=== PATIENT | male | born 1985 | race Caucasian/White ===

== ENCOUNTER 2017-08-04 11:02 | Emergency (ER) | payer OTHER, MEDICARE, MEDICAID ==
[~2017-08-04] VITALS: Ht 185.4 cm; Wt 85.9 kg
[2017-08-04] MEDS ORDERED: KETOROLAC TROMETHAMINE 10 MG TABLET PO ONE (12:00)
[2017-09-10 19:59] VITALS: BP 165/116
== END 2017-08-04 13:08 | disposition left against medical advice (07) ==
LOC: EDBD 11:06 → EMS 11:06
DX: K08.89 Other specified disorders of teeth and supporting structures (principal); F12.90 Cannabis use, unspecified, uncomplicated; Z76.0 Encounter for issue of repeat prescription
CPT/HCPCS: 99283

== ENCOUNTER 2017-09-15 05:44 | Emergency (ER) | payer MEDICARE, MEDICAID ==
[~2017-09-15] VITALS: Ht 185.4 cm; Wt 86.4 kg
[2017-09-15] MEDS ORDERED: GABA-533 PO (06:09)
[2017-09-15] MEDS ORDERED: HYDROCODONE/ACETAMINOPHEN 5-325 MG TABLET PO ONE ×2 (06:45→07:30)
[2017-09-15 07:04] LABS: BASOPHILS % (AUTO) 0.6 % (0.0-2.0); EOSINOPHILS % (AUTO) 1.9 % (1.0-6.0); HEMATOCRIT 51.3 % (41-53); HEMOGLOBIN 18.1 g/dL (13.5-17.5); LYMPHOCYTES # (AUTO) 2.5 K/uL (1.0-4.8); LYMPHOCYTES % (AUTO) 28.8 % (22.0-44.0); MEAN CORPUSCULAR HEMOGLOBIN 31.7 pg (26.0-34.0); MEAN CORPUSCULAR HGB CONC 35.3 G/dL (31.0-37.0); MEAN CORPUSCULAR VOLUME 90 fL (80-100); MONOCYTES # (AUTO) 0.7 K/uL (0.1-1.0); MONOCYTES % (AUTO) 8.2 % (2.0-9.0); NEUTROPHILS # (AUTO) 5.3 K/uL (1.8-7.7); NEUTROPHILS % (AUTO) 60.5 % (40.0-70.0); PLATELET COUNT (AUTO) 246 K/uL (150-450); RED CELL DISTRIBUTION WIDTH 13.6 % (11.5-14.5)
[2017-09-15 07:13] LABS: ANION GAP 6 mmol/L (8-16); CALCIUM, TOTAL 8.6 mg/dL (8.8-10.5); CARBON DIOXIDE 26 mmol/L (22-29); CHLORIDE 104 mmol/L (98-107); CREATININE 1.12 mg/dL (0.60-1.30); GLOMERULAR FILTR. RATE CALC > 60 mL/min (>60); GLUCOSE,RANDOM 103 mg/dL (70-110); POTASSIUM 3.5 mmol/L (3.5-5.1); SODIUM SERUM 136 mmol/L (136-145); UREA NITROGEN, BLOOD 11 mg/dL (7-18)
[2017-09-15 07:19] LABS: ALANINE AMINOTRANSFERASE 39 U/L (12-78); ALBUMIN 3.8 g/dL (3.4-5.0); ALKALINE PHOSPHATASE 92 U/L (46-116); ASPARTATE AMINOTRANSFERASE 34 U/L (15-37); BILIRUBIN,TOTAL 0.6 mg/dL (0.1-1.0); TOTAL PROTEIN, SERUM 7.5 g/dL (6.4-8.2)
[2017-09-15 07:20] LABS: AMPHET/METH SCREEN,URINE NEGATIVE (NEGATIVE); BARBITURATE SCREEN, URINE NEGATIVE (NEGATIVE); BENZODIAZEPINES SCREEN,URINE NEGATIVE (NEGATIVE); CANNABINOID SCREEN,URINE POSITIVE (NEGATIVE); COCAINE SCREEN,URINE POSITIVE (NEGATIVE); METHADONE SCREEN, URINE NEGATIVE (NEGATIVE); OPIATE SCREEN,URINE POSITIVE (NEGATIVE)
[2017-09-15 07:21] LABS: PHENCYCLIDINE SCREEN,URINE NEGATIVE (NEGATIVE)
[2017-09-15] MEDS ORDERED: CloNIDine HCL 0.1 MG TABLET PO ONE ×2 (07:30→09:30)
[2017-09-15] MEDS ORDERED: MORPHINE SULFATE 4 MG/ML SYRINGE IM ONE (09:15)
[2017-09-15 11:00] VITALS: BP 141/100
== END 2017-09-15 11:42 | disposition left against medical advice (07) ==
LOC: EMS 05:45
DX: R51 Headache (principal); I10 Essential (primary) hypertension; F14.90 Cocaine use, unspecified, uncomplicated; F12.90 Cannabis use, unspecified, uncomplicated; F17.210 Nicotine dependence, cigarettes, uncomplicated
CPT/HCPCS: 36415; 70450; 80053; 80307; 85025; 96372; 99285; J2270

== ENCOUNTER 2018-08-22 16:59 | Emergency (ER) | payer MEDICAID, MEDICARE, OTHER ==
[~2018-08-22] VITALS: Ht 182.9 cm; Wt 78.6 kg
[~2018-08-22 16:59] MED LIST: GABA-533 PO
[2018-08-22] MEDS ORDERED: GABA-531 PO (17:07)
[2018-08-22] MEDS ORDERED: LISI-662 PO (17:07)
[2018-08-22] MEDS ORDERED: MORPHINE SULFATE 4 MG/ML SYRINGE IVP ONE ×2 (17:45→20:30)
[2018-08-22 17:51] LABS: BASOPHILS % (AUTO) 0.5 % (0.0-2.0); EOSINOPHILS % (AUTO) 1.1 % (1.0-6.0); HEMATOCRIT 46.2 % (41-53); HEMOGLOBIN 15.6 g/dL (13.5-17.5); LYMPHOCYTES # (AUTO) 1.8 K/uL (1.0-4.8); LYMPHOCYTES % (AUTO) 21.7 % (22.0-44.0); MEAN CORPUSCULAR HEMOGLOBIN 30.4 pg (26.0-34.0); MEAN CORPUSCULAR HGB CONC 33.8 G/dL (31.0-37.0); MEAN CORPUSCULAR VOLUME 90 fL (80-100); MONOCYTES # (AUTO) 0.6 K/uL (0.1-1.0); MONOCYTES % (AUTO) 6.9 % (2.0-9.0); NEUTROPHILS # (AUTO) 5.7 K/uL (1.8-7.7); NEUTROPHILS % (AUTO) 69.8 % (40.0-70.0); PLATELET COUNT (AUTO) 191 K/uL (150-450); RED BLOOD CELL COUNT(AUTO) 5.13 MIL/uL (4.50-5.90); RED CELL DISTRIBUTION WIDTH 16.1 % (11.5-14.5)
[2018-08-22 18:10] LABS: ANION GAP 6 mmol/L (8-16); CARBON DIOXIDE 29 mmol/L (22-29); CHLORIDE 106 mmol/L (98-107); GLUCOSE,RANDOM 102 mg/dL (70-110); POTASSIUM 3.8 mmol/L (3.5-5.1); SODIUM SERUM 141 mmol/L (136-145); UREA NITROGEN, BLOOD 17 mg/dL (7-18)
[2018-08-22 18:11] LABS: CALCIUM, TOTAL 9.3 mg/dL (8.8-10.5); CREATININE 1.31 mg/dL (0.60-1.30); GLOMERULAR FILTR. RATE CALC > 60 mL/min (>60)
[2018-08-22 18:16] LABS: ALANINE AMINOTRANSFERASE 35 U/L (12-78); ALBUMIN 3.4 g/dL (3.4-5.0); ALKALINE PHOSPHATASE 92 U/L (46-116); ASPARTATE AMINOTRANSFERASE 27 U/L (15-37); BILIRUBIN,TOTAL 0.7 mg/dL (0.1-1.0); LIPASE 331 U/L (73-393); TOTAL PROTEIN, SERUM 7.1 g/dL (6.4-8.2)
[2018-08-22] MEDS ORDERED: KETOROLAC TROMETHAMINE 30 MG/ML VIAL IVP ONE (18:45)
[2018-08-22] MEDS ORDERED: SODIUM CHLORIDE 0.9% 1,000 ML IV ONE (18:45)
[2018-08-22 19:19] LABS: APPEARANCE,URINE CLEAR (CLEAR); BILIRUBIN,URINE NEGATIVE (NEGATIVE); GLUCOSE, URINE (UA) NEGATIVE (NEGATIVE); KETONES,URINE NEGATIVE (NEGATIVE); LEUKOCYTE ESTERASE ,URINE TRACE (NEGATIVE); NITRATE,URINE NEGATIVE (NEGATIVE); OCCULT BLOOD,URINE NEGATIVE (NEGATIVE); PROTEIN,URINE NEGATIVE (NEGATIVE)
[2018-08-22 19:25] LABS: AMPHET/METH SCREEN,URINE NEGATIVE (NEGATIVE); BARBITURATE SCREEN, URINE NEGATIVE (NEGATIVE); BENZODIAZEPINES SCREEN,URINE POSITIVE (NEGATIVE); CANNABINOID SCREEN,URINE POSITIVE (NEGATIVE); COCAINE SCREEN,URINE NEGATIVE (NEGATIVE); METHADONE SCREEN, URINE NEGATIVE (NEGATIVE); OPIATE SCREEN,URINE POSITIVE (NEGATIVE); PHENCYCLIDINE SCREEN,URINE NEGATIVE (NEGATIVE)
[2018-08-22 19:34] LABS: BACTERIA,URINE None Seen /HPF (None Seen); RBC,URINE None Seen /HPF (0-2); SQUAMOUS EPITHELIAL CELL,UR Rare /LPF (None Seen)
[2018-08-22 21:06] VITALS: BP 151/89
== END 2018-08-22 21:09 | disposition home or self-care (01) ==
LOC: EMS 17:00
DX: S22.42XA Multiple fractures of ribs, left side, initial encounter for closed fracture (principal); I10 Essential (primary) hypertension; F17.210 Nicotine dependence, cigarettes, uncomplicated; F12.90 Cannabis use, unspecified, uncomplicated; Z79.899 Other long term (current) drug therapy; Z88.8 Allergy status to other drugs, medicaments and biological substances; X58.XXXA Exposure to other specified factors, initial encounter; Y93.72 Activity, wrestling; Y92.89 Other specified places as the place of occurrence of the external cause; Y99.8 Other external cause status
CPT/HCPCS: 36415; 71045; 74176; 80053; 80307; 81001; 83690; 84484; 85025; 85379; 93005; 96374; 96375; 96376; 99284; J1885; J2270; J7030

== ENCOUNTER 2018-08-24 22:21 | Emergency (ER) | payer MEDICARE ==
[~2018-08-24] VITALS: Ht 182.9 cm; Wt 78.6 kg
[~2018-08-24 22:21] MED LIST changes: +GABA-531 PO; -GABA-533 PO; +LISI-662 PO
[2018-08-24] MEDS ORDERED: KETOROLAC TROMETHAMINE 60 MG/2 ML VIAL IM ONE (23:15)
[2018-08-24] MEDS ORDERED: LISINOPRIL 10 MG TABLET PO ONE (23:15)
[2018-08-25] MEDS ORDERED: HYDROCODONE/ACETAMINOPHEN 5-325 MG TABLET PO ONE (00:30)
[2018-08-25 00:41] VITALS: BP 153/88
== END 2018-08-25 01:19 | disposition home or self-care (01) ==
LOC: EMS 22:21
DX: S22.42XG Multiple fractures of ribs, left side, subsequent encounter for fracture with delayed healing (principal); I10 Essential (primary) hypertension; F12.90 Cannabis use, unspecified, uncomplicated; F17.210 Nicotine dependence, cigarettes, uncomplicated; Z88.8 Allergy status to other drugs, medicaments and biological substances; Z79.899 Other long term (current) drug therapy; X58.XXXD Exposure to other specified factors, subsequent encounter
CPT/HCPCS: 71250; 96372; 99284; J1885

== ENCOUNTER 2018-09-30 02:47 | Inpatient (IN) | payer MEDICARE, OTHER ==
[~2018-09-30] VITALS: Ht 175.3 cm; Wt 73.9 kg
[2018-09-30 03:25] LABS: BASOPHILS % (AUTO) 0.4 % (0.0-2.0); EOSINOPHILS % (AUTO) 1.3 % (1.0-6.0); HEMATOCRIT 46.7 % (41-53); HEMOGLOBIN 15.8 g/dL (13.5-17.5); LYMPHOCYTES # (AUTO) 2.1 K/uL (1.0-4.8); LYMPHOCYTES % (AUTO) 18.3 % (22.0-44.0); MEAN CORPUSCULAR HEMOGLOBIN 31.1 pg (26.0-34.0); MEAN CORPUSCULAR HGB CONC 33.7 G/dL (31.0-37.0); MEAN CORPUSCULAR VOLUME 92 fL (80-100); MONOCYTES % (AUTO) 8.9 % (2.0-9.0); NEUTROPHILS # (AUTO) 8.4 K/uL (1.8-7.7); NEUTROPHILS % (AUTO) 71.1 % (40.0-70.0); PLATELET COUNT (AUTO) 232 K/uL (150-450); RED BLOOD CELL COUNT(AUTO) 5.07 MIL/uL (4.50-5.90); RED CELL DISTRIBUTION WIDTH 14.4 % (11.5-14.5)
[2018-09-30 03:33] LABS: ANION GAP 7 mmol/L (8-16); CALCIUM, TOTAL 9.1 mg/dL (8.8-10.5); CARBON DIOXIDE 28 mmol/L (22-29); CHLORIDE 107 mmol/L (98-107); CREATININE 1.32 mg/dL (0.60-1.30); GLOMERULAR FILTR. RATE CALC > 60 mL/min (>60); GLUCOSE,RANDOM 142 mg/dL (70-110); POTASSIUM 3.6 mmol/L (3.5-5.1); SODIUM SERUM 142 mmol/L (136-145); UREA NITROGEN, BLOOD 18 mg/dL (7-18)
[2018-09-30 03:39] LABS: ALANINE AMINOTRANSFERASE 37 U/L (12-78); ALBUMIN 3.3 g/dL (3.4-5.0); ALKALINE PHOSPHATASE 103 U/L (46-116); ASPARTATE AMINOTRANSFERASE 29 U/L (15-37); BILIRUBIN,TOTAL 0.9 mg/dL (0.1-1.0)
[2018-09-30] MEDS ORDERED: TRAZ-252 PO (03:56)
[2018-09-30] MEDS ORDERED: ATEN50TA PO (03:56)
[2018-09-30] MEDS ORDERED: ZOLPIDEM TARTRATE 10 MG TABLET PO PRN (06:30)
[2018-09-30] MEDS ORDERED: HALOPERIDOL 5 MG TABLET PO PRN (06:30)
[2018-09-30] MEDS ORDERED: DOCUSATE SODIUM 100 MG CAPSULE PO PRN (11:00)
[2018-09-30] MEDS ORDERED: PETROLATUM,WHITE 28 GM JELLY TP PRN (11:00)
[2018-09-30] MEDS ORDERED: GuaiFENesin/D-METHORPHAN [SUGAR-FREE] 200-20MG/10 ML SYRUP UDCUP PO PRN (11:00)
[2018-09-30] MEDS ORDERED: NICOTINE 14 MG/24 HOUR PATCH TD PRN (11:00)
[2018-09-30] MEDS ORDERED: MAGNESIUM HYDROXIDE SUSPENSION 30 ML UDCUP PO PRN (11:00)
[2018-09-30] MEDS ORDERED: LOPERAMIDE HCL 2 MG CAPSULE PO PRN (11:00)
[2018-09-30] MEDS ORDERED: IBUPROFEN 400 MG TABLET PO PRN (11:00)
[2018-09-30] MEDS ORDERED: ACETAMINOPHEN 325 MG TABLET PO PRN (11:00)
[2018-09-30] MEDS ORDERED: MAG HYDROX/AL HYDROX/SIMETH ES 30 ML SUSPENSION UDCUP PO PRN (11:00)
[2018-09-30] MEDS ORDERED: ONDANSETRON HCL 4 MG TABLET PO PRN (11:00)
[2018-09-30 11:58] LABS: AMPHET/METH SCREEN,URINE NEGATIVE (NEGATIVE); BARBITURATE SCREEN, URINE NEGATIVE (NEGATIVE); BENZODIAZEPINES SCREEN,URINE POSITIVE (NEGATIVE); CANNABINOID SCREEN,URINE POSITIVE (NEGATIVE); COCAINE SCREEN,URINE POSITIVE (NEGATIVE); METHADONE SCREEN, URINE NEGATIVE (NEGATIVE); OPIATE SCREEN,URINE NEGATIVE (NEGATIVE)
[2018-09-30 12:03] LABS: PHENCYCLIDINE SCREEN,URINE NEGATIVE (NEGATIVE)
[2018-09-30] MEDS: LORazepam 2 MG TABLET PO PRN ×2 (12:36→17:57)
[2018-09-30] MEDS ORDERED: CloNIDine HCL 0.1 MG TABLET PO PRN (21:15)
[2018-09-30] MEDS: GABAPENTIN 300 MG CAPSULE PO SCH (21:48)
[2018-09-30 23:17] VITALS: BP 155/101
[2018-10-01] MEDS: GABAPENTIN 300 MG CAPSULE PO SCH ×4 (07:46→17:53)
[2018-10-01 07:47] VITALS: BP 148/114
[2018-10-01] MEDS: LISINOPRIL 20 MG TABLET PO SCH (07:47)
[2018-10-01] MEDS: ATENOLOL 50 MG TABLET PO SCH (07:48)
[2018-10-01] MEDS: BACITRACIN 28.4 GM OINTMENT TP SCH ×2 (07:48→16:11)
[2018-10-01] MEDS: LORazepam 2 MG TABLET PO PRN ×4 (10:33→22:41)
[2018-10-01] MEDS: ALBUTEROL SULFATE HFA 90 MCG/PUFF 8 GM INHALER IH PRN (10:37)
[2018-10-01 16:19] VITALS: BP 131/91
[2018-10-02] MEDS ORDERED: PNEUMOCOCCAL VACCINE POLYVALENT 0.5 ML VIAL [PPSV23] IM ONE (01:15)
[2018-10-02] MEDS: LORazepam 2 MG TABLET PO PRN ×4 (07:38→22:34)
[2018-10-02] MEDS: ATENOLOL 50 MG TABLET PO SCH (08:21)
[2018-10-02] MEDS: BACITRACIN 28.4 GM OINTMENT TP SCH ×2 (08:23→17:29)
[2018-10-02 08:24] VITALS: BP 142/96
[2018-10-02] MEDS: LISINOPRIL 20 MG TABLET PO SCH (08:25)
[2018-10-02] MEDS: GABAPENTIN 300 MG CAPSULE PO SCH ×3 (08:26→17:29)
[2018-10-02] MEDS: ARIPiprazole 5 MG TABLET PO SCH (08:27)
[2018-10-02 17:12] VITALS: BP 121/69
[2018-10-02] MEDS ORDERED: MIRTAZAPINE 15 MG TABLET PO SCH (21:00)
[2018-10-02] MEDS: ALBUTEROL SULFATE HFA 90 MCG/PUFF 8 GM INHALER IH PRN (22:18)
[2018-10-03 08:05] VITALS: BP 146/93
[2018-10-03] MEDS: ARIPiprazole 5 MG TABLET PO SCH (08:13)
[2018-10-03] MEDS: GABAPENTIN 300 MG CAPSULE PO SCH ×2 (08:13→12:58)
[2018-10-03] MEDS: BACITRACIN 28.4 GM OINTMENT TP SCH (08:14)
[2018-10-03] MEDS: LISINOPRIL 20 MG TABLET PO SCH (08:26)
[2018-10-03] MEDS: LORazepam 2 MG TABLET PO PRN (08:26)
[2018-10-03] MEDS: ATENOLOL 50 MG TABLET PO SCH (08:26)
[2018-10-03] MEDS ORDERED: ARIP5TAB8 PO (11:37)
[2018-10-03] MEDS ORDERED: MIRT15 PO (11:37)
[2018-10-03] MEDS ORDERED: BACI30OI6 TP (11:41)
== END 2018-10-03 14:10 | disposition home or self-care (01) | DRG 885 ==
LOC: EMS 02:47 → 3EC 19:30 → 3EX 10-01 13:43
PROVIDERS: ADMIT Psychiatry & Neurology Psychiatry; ATTEND Psychiatry & Neurology Psychiatry
DX: F33.2 Major depressive disorder, recurrent severe without psychotic features (principal); N17.9 Acute kidney failure, unspecified; R45.851 Suicidal ideations; F12.90 Cannabis use, unspecified, uncomplicated; I10 Essential (primary) hypertension; F41.9 Anxiety disorder, unspecified; F17.210 Nicotine dependence, cigarettes, uncomplicated; F43.10 Post-traumatic stress disorder, unspecified; D72.829 Elevated white blood cell count, unspecified; F60.3 Borderline personality disorder; Z59.0 Homelessness; Z88.8 Allergy status to other drugs, medicaments and biological substances
CPT/HCPCS: 70450; G0378; G0480; J3535